=== PATIENT | female | born 1940 | race Caucasian/White ===

== ENCOUNTER → 2017-09-26 | Outpatient (CLI) | payer MEDICARE, OTHER ==
[~2017-09-26] MED LIST: ASPI-496 PO; CALC1CAP8 PO; CETI-158 PO; CYAN1TAB29 PO; FISH400C3 PO; GLUC-149 PO; LYSI500T3 PO; MAGNESIUM PO; METO-95 PO; MULT-717 PO; OMEP-110 PO; POTASSIUM PO; SIMV80TA3 PO; SUMA50TA3 PO; TRIA1CAP3 PO; TURM500C4 PO; TYLENOL ARTHRITIS PO; VITA400C43 PO
[2017-09-26 15:34] LABS: ALANINE AMINOTRANSFERASE 40 U/L (12-78); ALBUMIN 3.9 g/dL (3.4-5.0); ANION GAP 7 mmol/L (5-15); CALCIUM 9.5 mg/dL (8.5-10.1); CHLORIDE 106 mmol/L (98-107); CREATININE 0.83 mg/dL (0.55-1.02)
[2017-09-26 15:37] LABS: ALKALINE PHOSPHATASE 55 U/L (45-117); BILIRUBIN,TOTAL 0.7 mg/dL (0.2-1.0); TOTAL PROTEIN 7.2 g/dL (6.4-8.2)
== END | disposition home or self-care (01) ==
LOC: STAR 13:35
PROVIDERS: ATTEND Specialist
DX: D37.030 Neoplasm of uncertain behavior of the parotid salivary glands (principal); R94.31 Abnormal electrocardiogram [ECG] [EKG]
CPT/HCPCS: 36415; 80053; 93005

== ENCOUNTER 2017-10-11 07:03 | Day surgery (SDC) | payer MEDICARE, OTHER ==
[~2017-10-11] VITALS: Ht 162.6 cm; Wt 79.3 kg
[2017-10-11] MEDS ORDERED: GABAPENTIN 300 MG CAPSULE PO ONE (07:30)
[2017-10-11] MEDS ORDERED: ACETAMINOPHEN 500 MG TABLET PO ONE (07:30)
[2017-10-11] MEDS ORDERED: LACTATED RINGERS 1,000 ML IV SCH (07:30)
[2017-10-11] MEDS ORDERED: ONDANSETRON ODT 8 MG PO ONE (07:30)
[2017-10-11 07:50] VITALS: BP 170/100
[2017-10-11] MEDS ORDERED: NEOSPORIN OINT, 15GM ONE (08:27)
[2017-10-11] MEDS ORDERED: LIDOCAINE/PF 1%, 30ML ONE (08:27)
[2017-10-11] MEDS ORDERED: EPINEPHRINE 1 MG/ML, 1ML ONE (08:27)
[2017-10-11] MEDS ORDERED: LABETALOL 5MG/ML 40ML VIAL ONE (09:25)
[2017-10-11] MEDS ORDERED: PHENYLEPHRINE 10 MG/ML ONE (09:25)
[2017-10-11] MEDS ORDERED: MIDAZOLAM 1 MG/ML, 2ML ONE (10:01)
[2017-10-11] MEDS ORDERED: FENTANYL PF 250 MCG/5ML ONE ×2 (10:01→11:01)
[2017-10-11] MEDS ORDERED: ONDANSETRON 2MG/ML, 2ML ONE (10:02)
[2017-10-11] MEDS ORDERED: DEXAMETHASONE 4 MG/ML, 1ML ONE (10:02)
[2017-10-11] MEDS ORDERED: CEFAZOLIN 1,000 MG ONE (10:02)
[2017-10-11] MEDS ORDERED: PROPOFOL 10 MG/ML, 20ML ONE (10:02)
[2017-10-11] MEDS ORDERED: EPHEDRINE 50 MG/ML, 1ML ONE (10:02)
[2017-10-11] MEDS ORDERED: SUCCINYLCHOLINE 20 MG/ML, 10ML ONE (10:02)
[2017-10-11] MEDS ORDERED: LIDOCAINE 1%-EPI 1:100K, 30ML INFIL ONE (10:08)
[2017-10-11] MEDS ORDERED: hydrALAzine 20 MG/ML, 1ML IV PRN (10:30)
[2017-10-11] MEDS ORDERED: ALBUTEROL/IPRATROPIUM 2.5MG/0.5MG, 3 ML NPPB PRN (10:30)
[2017-10-11] MEDS ORDERED: OXYcodone 5 MG/5 ML ORAL.SOL UDC PO PRN (10:30)
[2017-10-11] MEDS ORDERED: SCOPOLAMINE PATCH, 1.5MG PATCH.TD72 TD PRN (10:30)
[2017-10-11] MEDS ORDERED: ONDANSETRON ODT 8 MG PO PRN (10:30)
[2017-10-11] MEDS ORDERED: PROMETHAZINE 25 MG/ML, 1ML IV PRN (10:30)
[2017-10-11] MEDS ORDERED: DIAZEPAM 5 MG/ML, 2ML IVPush PRN (10:30)
[2017-10-11] MEDS ORDERED: DIPHENHYDRAMINE 50 MG/ML, 1ML IVPush PRN (10:30)
[2017-10-11] MEDS ORDERED: MEPERIDINE/PF 25MG/0.5ML IVPush PRN (10:30)
[2017-10-11] MEDS ORDERED: METOPROLOL 1 MG/ML, 5ML IV PRN (10:30)
[2017-10-11] MEDS ORDERED: FENTANYL PF 100 MCG/2ML IV PRN (10:30)
[2017-10-11] MEDS ORDERED: EPHEDRINE 50 MG/ML, 1ML IM PRN (10:30)
[2017-10-11] MEDS ORDERED: MIDAZOLAM 1 MG/ML, 2ML IV PRN (10:30)
[2017-10-11] MEDS ORDERED: HYDROmorphone 1 MG/ML, 1ML IV PRN (10:30)
[2017-10-11] MEDS ORDERED: MORPHINE SULFATE 4 MG/ML, 1ML ONE (12:55)
[2017-10-11] MEDS ORDERED: OXYcodone 5 MG/5 ML ORAL.SOL UDC ONE (12:55)
[2017-10-11] MEDS: MORPHINE SULFATE 4 MG/ML, 1ML IVPush PRN ×2 (12:57→13:12)
== END 2017-10-11 18:10 ==
LOC: OUT 07:03
PROVIDERS: ATTEND Specialist
DX: D11.0 Benign neoplasm of parotid gland (principal); K21.9 Gastro-esophageal reflux disease without esophagitis; E78.5 Hyperlipidemia, unspecified; I10 Essential (primary) hypertension; F15.90 Other stimulant use, unspecified, uncomplicated; M19.90 Unspecified osteoarthritis, unspecified site; G43.909 Migraine, unspecified, not intractable, without status migrainosus; Z90.49 Acquired absence of other specified parts of digestive tract; Z98.890 Other specified postprocedural states; Z87.891 Personal history of nicotine dependence; Z79.82 Long term (current) use of aspirin; Z79.899 Other long term (current) drug therapy; Z86.69 Personal history of other diseases of the nervous system and sense organs; Z82.49 Family history of ischemic heart disease and other diseases of the circulatory system
CPT/HCPCS: 88307; J0171; J0690; J1100; J2250; J2405; J2704; J3010; J3490; Q0162; J0330; J2370; J7120